=== PATIENT | female | born 1990 | race Two or more races ===

== ENCOUNTER 2019-06-16 11:28 | Inpatient (IN) | payer MEDICAID, OTHER ==
[2019-06-16] MEDS ORDERED: Witch Hazel Medicated Pads 40/Jar TOP PRN (12:15)
[2019-06-16] MEDS ORDERED: Docusate Sodium 100 MG Cap PO PRN (12:15)
[2019-06-16] MEDS ORDERED: Benzocaine/Menthol 20%-0.5% Spray 78 GM Cannister TOP PRN (12:15)
[2019-06-16] MEDS ORDERED: Bisacodyl 10 MG Supp RECTAL PRN (12:15)
[2019-06-16] MEDS ORDERED: Lanolin 100% Cream 7 GM Tube TOP PRN (12:15)
[2019-06-16] MEDS ORDERED: Famotidine 20 MG Tab PO PRN (12:15)
[2019-06-16] MEDS ORDERED: diphenhydrAMINE 50 MG Cap PO PRN (12:15)
[2019-06-16] MEDS ORDERED: Ibuprofen 800 MG Tab PO PRN (12:15)
[2019-06-16] MEDS ORDERED: Ondansetron 4 MG/2 ML SDV IVPUSH PRN (12:15)
[2019-06-16] MEDS ORDERED: Simethicone 80 MG Tab.Chew PO PRN (12:15)
[2019-06-16] MEDS ORDERED: Aluminum Hydroxide/Magnesium Hydroxide/Simethicone Susp 30 ML Cup PO PRN (12:15)
[2019-06-16] MEDS ORDERED: Hydrocortisone 2.5% Crm 30 GM Tube TOP PRN (12:15)
[2019-06-16] MEDS ORDERED: oxyCODONE 5 MG Tab PO PRN (12:15)
[2019-06-16] MEDS ORDERED: Acetaminophen 500 MG Tab PO PRN ×2 (12:15)
--- NOTE | 2019-06-16 12:31 | PCM.OPNOTE ---
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
[2019-06-16] MEDS ORDERED: Methylergonovine 0.2 MG/1 ML Amp ONE (13:16)
[2019-06-16] MEDS ORDERED: Oxytocin 10 Units/1 ML SDV IM ONE (13:25)
--- NOTE | 2019-06-16 13:51 | OR ---
SURGEON: Karely Owusu MD DATE OF PROCEDURE: PREOPERATIVE DIAGNOSIS: A 29-year-old, gravid 2, para 1. POSTOPERATIVE DIAGNOSIS: A 29-year-old, gravid 2, para 1. OPERATIVE PROCEDURE: Precipitous spontaneous vaginal delivery. FINDINGS: Live female on maternal chest. ESTIMATED BLOOD LOSS: 100 mL. COMPLICATIONS: None. DESCRIPTION OF PROCEDURE: The patient presented to the emergency department with contractions and rupture of membranes. Upon presentation, she has a precipitous delivery of a live female in her vehicle. Upon arrival to the vehicle, the was vigorous and on the maternal chest. The cord was clamped and cut, and the infant was handed off to waiting nurses to be evaluated. The patient was brought into a Labor and Delivery room for examination. No perineal lacerations were noted. She was given 10 units IM Pitocin. The placenta was delivered spontaneously and intact with 3-vessel cord with Coker-Mejia maneuver. The fundus was firm 2 cm below the umbilicus with minimal bleeding. The patient and the baby tolerated the procedure well. She will be taken to the unit in stable condition. [id number] / MODL /[id number]
--- NOTE | 2019-06-16 14:37 | PCM.SN ---
- Free Text/Narrative Note: OB records reviewed: MARNIE 06/25/19 by 26w1d US -> EGA 38w5d OB Hx: G1 02/2018 SAB; G2 09/07/2018 at 39w0d, female Lab review: A+, Rubella immune, RPR nonreactive, Hep B negative, HIV negative, GC/CT negative, 1hr GTT 106, GBS negative
--- NOTE | 2019-06-16 15:36 | HP ---
DATE OF : 1990 PRIMARY CARE PHYSICIAN: Lucia Peterson CHIEF COMPLAINT: Contractions. HISTORY OF PRESENT ILLNESS: This is a 29-year-old, , who presented to the emergency department complaining of contractions and rupture of membranes. The contractions had begun 2 hours prior and rupture of membranes occurred shortly before arrival. Upon presentation to the emergency room, she had spontaneously delivered her live female . She had minimal bleeding and a moderate amount of pain. PAST MEDICAL HISTORY: Denies. PAST SURGICAL HISTORY: Denies. SOCIAL HISTORY: Denies tobacco, alcohol, or drug abuse. ALLERGIES: None. MEDICATIONS: vitamin. PHYSICAL EXAMINATION: VITAL SIGNS: Not obtained. GENERAL: No apparent distress. ABDOMEN: Soft, nondistended, appropriately tender to palpation. Fundus firm below the umbilicus. Fetus on maternal chest. ASSESSMENT AND PLAN: A 29-year-old, 3, para 2, status post precipitous spontaneous vaginal delivery. 1. Admit to for routine care. 2. We will obtain records from the patient's provider in [place]. KERI / EVANGELISTA /[id number] KENIA
--- NOTE | 2019-06-17 10:44 | PCM.PNPP ---
- General Info Date of Service: 06/17/19 Functional Status: Reports: Pain Controlled, Tolerating Diet, Ambulating, Urinating - Review of Systems General: Reports: No Symptoms. Denies: Fever HEENT: Reports: No Symptoms Pulmonary: Reports: No Symptoms. Denies: Shortness of Breath, Wheezing Cardiovascular: Reports: No Symptoms. Denies: Chest Pain, Palpitations, Dyspnea on Exertion Gastrointestinal: Reports: Abdominal Pain (mild cramping, well controlled). Denies: Nausea Genitourinary: Reports: No Symptoms. Denies: Dysuria Musculoskeletal: Reports: No Symptoms Skin: Reports: No Symptoms Neurological: Reports: No Symptoms Psychiatric: Reports: No Symptoms - General Info Date of Service: 06/17/19 - Patient Data Vital Signs - Most Recent: Last Vital Signs Temp 36.4 C 06/17/19 07:45 Pulse 75 06/17/19 07:45 Resp 18 06/17/19 07:45 BP 128/78 06/17/19 07:45 Pulse Ox 97 06/17/19 07:45 Weight - Most Recent: 74.843 kg Lab Results - Last 24 Hours: Laboratory Results - last 24 hr 06/17/19 Range/Units 05:52 Hgb 10.1 L (12.0-16.0) g/dL Hct 30.7 L (36.0-46.0) % Med Orders - Current: Current Medications Acetaminophen (Tylenol Extra Strength) 500 mg PO Q4H PRN PRN Reason: Pain Acetaminophen (Tylenol Extra Strength) 1,000 mg PO Q6H PRN PRN Reason: Pain Last Admin: 06/17/19 03:52 Dose: 1,000 mg Al Hydroxide/Mg Hydroxide (Mag-Al Plus) 30 ml PO Q8H PRN PRN Reason: Heartburn Benzocaine/Menthol (Dermoplast Pain Relief 20%-0.5% [place]) 78 gm TOP ASDIRECTED PRN PRN Reason: Perineal Comfort Measure Bisacodyl (Dulcolax) 10 mg RECTAL ONETIME PRN PRN Reason: Constipation Diphenhydramine HCl (Benadryl) 50 mg PO BEDTIME PRN PRN Reason: Insomnia Docusate Sodium (Colace) 100 mg PO BID PRN PRN Reason: Constipation Emollient Ointment (Lansinoh Hpa) 0 gm TOP ASDIRECTED PRN PRN Reason: Sore Nipples Famotidine (Pepcid) 20 mg PO BID PRN PRN Reason: Heartburn Hydrocortisone (Proctozone-Hc 2.5% Crm) 1 gm TOP 6XDAY PRN PRN Reason: Itching Ibuprofen (Motrin) 800 mg PO Q8H PRN PRN Reason: Pain Last Admin: 06/16/19 12:55 Dose: 800 mg Ondansetron HCl (Zofran) 4 mg IVPUSH Q6H PRN PRN Reason: Nausea/Vomiting Oxycodone HCl (Oxycodone) 5 mg PO Q4H PRN PRN Reason: Pain Last Admin: 06/16/19 14:54 Dose: 5 mg Simethicone (Simethicone) 80 mg PO Q4H PRN PRN Reason: Gas Witch Vania (Tucks) 1 pad TOP ASDIRECTED PRN PRN Reason: comfort care Discontinued Medications Methylergonovine Maleate (Methergine) Confirm Administered Dose 0.2 mg .ROUTE .STK-MED ONE Stop: 06/16/19 13:17 Last Admin: 06/16/19 13:20 Dose: 0.2 mg Oxytocin (Pitocin) 10 unit IM ONETIME ONE Stop: 06/16/19 13:26 Last Admin: 06/16/19 11:50 Dose: 10 unit - Interaction Infant Disposition, : [place] at Bedside Infant Interaction: Holding Infant Infant Feeding: Breastfed ; Nursed Well Support Person: Other (see below) ([id number]) - Recovery Exam Fundal Tone: Firm Fundal Level: 2 Fingerbreadths Below Umbilicus Fundal Placement: Midline Lochia Amount: Scant Lochia Color: Rubra/Red Bladder Status: Voiding Urinary Elimination: Voided - Exam General: Alert, Oriented, Cooperative, No Acute Distress HEENT: Mucous Membr. Moist/[place] Neck: Supple Lungs: Clear to Auscultation, Normal Respiratory Effort Cardiovascular: Regular Rate, Regular Rhythm, No Murmurs GI/Abdominal Exam: Normal Bowel Sounds, Soft, No Distention, Tender ( appropriate tenderness to palpation) Extremities: Normal Inspection, No Pedal Edema Skin: Warm, Dry, Intact Neurological: No New Focal Deficit Psy/Mental Status: Normal Affect, Normal Mood - Problem List & Annotations (1) Vaginal delivery SNOMED Code(s): 371366064 Code(s): O80 - ENCOUNTER FOR FULL-TERM UNCOMPLICATED DELIVERY Status: Acute Current Visit: Yes - Problem List Review Problem List Initiated/Reviewed/Updated: Yes - My Orders Last 24 Hours: My Active Orders 06/16/19 12:15 Patient Status [ADT] Routine May Shower [RC] ASDIRECTED Up ad Melida [RC] ASDIRECTED Vital Signs [RC] PER UNIT ROUTINE Acetaminophen [Tylenol Extra Strength] 1,000 mg PO Q6H PRN Acetaminophen [Tylenol Extra Strength] 500 mg PO Q4H PRN Alum Hydrox/Mag Hydrox/Simeth [Mag-Al Plus] 30 ml PO Q8H PRN Benzocaine/Menthol [Dermoplast Pain Relief 20%-0.5% [place]] 78 gm TOP ASDIRECTED PRN Bisacodyl [Dulcolax] 10 mg RECTAL ONETIME PRN Docusate Sodium [Colace] 100 mg PO BID PRN Famotidine [Pepcid] 20 mg PO BID PRN Hydrocortisone [Proctozone-HC 2.5% Crm] 1 gm TOP 6XDAY PRN Ibuprofen [Motrin] 800 mg PO Q8H PRN Lanolin [Lansinoh HPA] See Dose Instructions TOP ASDIRECTED PRN Ondansetron [Zofran] 4 mg IVPUSH Q6H PRN Simethicone 80 mg PO Q4H PRN Witch Vania [Tucks] 1 pad TOP ASDIRECTED PRN diphenhydrAMINE [Benadryl] 50 mg PO BEDTIME PRN oxyCODONE 5 mg PO Q4H PRN Assess Lochia [WOMSER] Per Unit Routine Assess Uterine Involution [WOMSER] Per Unit Routine Peripheral IV Discontinue [OM.PC] Routine Resuscitation Status Routine 06/16/19 12:16 Ice Therapy [OM.PC] Per Unit Routine Perineal Care [OM.PC] Per Unit Routine Sitz Bath [OM.PC] Per Unit Routine 06/16/19 Lunch Regular Diet [DIET] 06/17/19 00:01 Ready for Discharge [RC] PER UNIT ROUTINE - Assessment Assessment:: 29yo s/p precipitous spontaneous vaginal delivery, PPD#1 Meeting all milestones well Minimal lochia - Plan Plan:: Patient stable for discharge home after 24 hours Encourage and ambulation
== END 2019-06-17 16:25 | disposition home or self-care (01) | DRG 807 ==
LOC: MW.OB 11:28 → EDBD 11:28 → MW.OB 15:00
PROVIDERS: ADMIT Obstetrics & Gynecology; ATTEND Obstetrics & Gynecology
PROC: 10E0XZZ Delivery of Products of Conception, External Approach (ICD-10-PCS; principal; 2019-06-16)
DX: O62.3 Precipitate labor (principal); Z37.0 Single live birth; Z3A.38 38 weeks gestation of pregnancy
CPT/HCPCS: 36415; 59414; 85014; 85018; A9270-GY; J2210; J2590

== ENCOUNTER 2021-11-25 13:49 | Inpatient (IN) | payer MEDICAID, OTHER ==
[2021-11-25] MEDS ORDERED: Water For Irrigation,Sterile 1,000 ML Container IRR PRN (14:19)
[2021-11-25] MEDS ORDERED: Sodium Chloride 0.9% 2.5 ML Syringe FLUSH PRN (14:19)
[2021-11-25] MEDS ORDERED: Methylergonovine 0.2 MG/1 ML Amp IM PRN (14:19)
[2021-11-25] MEDS ORDERED: Carboprost Tromethamine 250 MCG/1 ML Amp IM PRN (14:19)
[2021-11-25] MEDS ORDERED: Tranexamic Acid 1,000 MG in Sodium Chloride 0.9% 100 ML IV PRN (14:19)
[2021-11-25] MEDS ORDERED: Nalbuphine 10 MG/1 ML Vial IVPUSH PRN (14:19)
[2021-11-25] MEDS ORDERED: Butorphanol 1 MG/ML SDV IVPUSH PRN (14:19)
[2021-11-25] MEDS ORDERED: Sodium Chloride 0.9% 20 ML SDV IV PRN (14:19)
[2021-11-25] MEDS ORDERED: Misoprostol 200 MCG Tab PO PRN (14:19)
[2021-11-25] MEDS ORDERED: Sodium Chloride 0.9% 10 ML Syringe FLUSH PRN (14:19)
[2021-11-25] MEDS ORDERED: Lidocaine 1% 20 ML MDV INJECT PRN (14:26)
[2021-11-25] MEDS ORDERED: Oxytocin/0.9 % Sodium Chloride 30 UNIT/500 ML BAG IV SCH (14:30)
[2021-11-25] MEDS ORDERED: Lactated Ringers 1,000 ML IV SCH (14:30)
[2021-11-25] MEDS ORDERED: Witch Hazel Medicated Pads 40/Jar TOP PRN (15:49)
[2021-11-25] MEDS ORDERED: oxyCODONE 5 MG Tab PO PRN (15:49)
[2021-11-25] MEDS ORDERED: Acetaminophen 500 MG Tab PO PRN ×2 (15:49)
[2021-11-25] MEDS ORDERED: Benzocaine/Menthol 20%-0.5% Spray 78 GM Cannister TOP PRN (15:49)
[2021-11-25] MEDS ORDERED: Docusate Sodium 100 MG Cap PO PRN (15:49)
[2021-11-25] MEDS ORDERED: Bisacodyl 10 MG Supp RECTAL PRN (15:49)
[2021-11-25] MEDS ORDERED: Ibuprofen 800 MG Tab PO PRN (15:49)
[2021-11-25] MEDS ORDERED: Ibuprofen 400 MG Tab PO PRN (15:49)
[2021-11-25] MEDS ORDERED: Lanolin 100% Cream 7 GM Tube TOP PRN (15:49)
== END 2021-11-27 17:25 | disposition home or self-care (01) | DRG 807 ==
LOC: MW.OBCHECK 13:49 → MW.OB 13:54 → MW.OBCHECK 15:30 → OBSVTOIN 15:31 → MW.OB 18:20
PROVIDERS: ADMIT Obstetrics & Gynecology; ATTEND Obstetrics & Gynecology
PROC: 10E0XZZ Delivery of Products of Conception, External Approach (ICD-10-PCS; principal; 2021-11-25)
PROC: 10907ZC Drainage of Amniotic Fluid, Therapeutic from Products of Conception, Via Natural or Artificial Opening (ICD-10-PCS; 2021-11-25)
DX: O80 Encounter for full-term uncomplicated delivery (principal); Z37.0 Single live birth; Z3A.39 39 weeks gestation of pregnancy; Z20.822 Contact with and (suspected) exposure to COVID-19
CPT/HCPCS: 36415; 59025; 59409; 85014; 85018; 85027; 86592; 86850; 86900; 86901; A9270-GY; J2590; J7120; U0002